=== PATIENT | male | born 1980 | race Caucasian/White ===

== ENCOUNTER → 2017-10-12 | Outpatient (CLI) | payer BC | LOC: COL.RAD 08:42 | DX: M16.11 Unilateral primary osteoarthritis, right hip (principal); M24.7 Protrusio acetabuli; Z98.1 Arthrodesis status | CPT/HCPCS: J3301; Q9967 ==

== ENCOUNTER → 2017-12-24 | Outpatient (CLI) | payer BC | LOC: COL.RAD 13:55 | DX: M16.0 Bilateral primary osteoarthritis of hip (principal) | CPT/HCPCS: J3301; Q9967 ==

== ENCOUNTER → 2018-11-04 | Outpatient (CLI) | payer BC | LOC: COL.RAD 12:29 | DX: M25.551 Pain in right hip (principal); M25.552 Pain in left hip | CPT/HCPCS: J3301; Q9967 ==

== ENCOUNTER → 2019-10-22 | Outpatient (CLI) | payer BC | LOC: COL.RAD 09:30 | DX: M25.551 Pain in right hip (principal) | CPT/HCPCS: J3301; Q9967 ==

== ENCOUNTER → 2021-04-25 | Outpatient (CLI) | payer BC | LOC: COL.RAD 08:42 | DX: M17.0 Bilateral primary osteoarthritis of knee (principal); Z79.52 Long term (current) use of systemic steroids | CPT/HCPCS: A9503 ==